=== PATIENT | female | born 1980 | race Caucasian/White ===

== ENCOUNTER 2017-07-02 07:19 | Inpatient (IN) | payer BC, OTHER ==
[~2017-07-02] VITALS: Ht 175.3 cm; Wt 99.3 kg
--- NOTE | 2017-07-02 10:20 | NUR ---
Pre-admission Note: Client was seen in intake at this time. Appears anxious and guarded but cooperative. Alert and oriented x 4. Verbally responsive. Reports allergies to PCN, SULFA and TRAMADOL. Denies any seizure history. Wishes to be FULL CODE. Follows a regular diet at home. She reports past medical hx of insomnia, neck surgery in 2013 and a hysterectomy in 2008. Client states "I am here to get off prescription drugs and alcohol because it is becoming to be a problem." VS: Temp 98.1, Pulse 79, RR 18, BP 127/92, PL 0/10. Educated client on the admission process, reassurance provided. Will continue with the admission when client arrives on the unit.
[2017-07-02 10:30] VITALS: BP 127/92
--- NOTE | 2017-07-02 10:30 | NUR ---
Admission Note: Admitted a 36 year old female under the care of Dr. Ramses Christine for opiate and ETOH withdrawal She is alert and verbally responsive. Oriented x 4. Respirations even and unlabored. No SOB noted. Skin warm and moist to touch. Body search done by female COUNSEL. No contraband was found. Skin check done. No skin breakdown noted. Abdomen soft and non-distended. BS (+) in all 4 quadrants. Denies any complains of N/V/D or constipation noted. Reports LBM was yesterday. Voids independently. Able to provide urine for UDS. Ambulatory ad hollie with steady gait. Denies seizure history. However, reports hx of insomnia, hysterectomy in 2008 and neck surgery in 2013. She reports having a PCP named Dr. Ragsdale from [place] which she has not seen in a year. She is allergic to PCN, SULFA, and TRAMADOL. She follows a regular diet at home and wishes to be FULL CODE. She is currently living with her and due to a traumatic past she started drinking more than usual and has been taking prescription [place] more than prescribed. Patient does not smoke cigarettes. She reports that this is her first time in detox and her usual withdrawal symptoms are anxiety, diarrhea and chills. Substance Use: 1. ETOH - since 14 years old, reports consuming 1 to 2 pints of Vodka 5 days a week x 5 years. Last drink was 2 days ago, 1 pint. 2. Catlett - since 2012, orally takes 60 to 90 mg daily, if available x 3 months. Last use was on 07/01/2017, 30 mg. Orientation to the unit provided. Educated patient on the unit's policy and procedures and current plan of care. Patient verbalized good understanding. On fall and seizure precautions. All needs met and attended. Will continue to monitor closely. Dr. Christine in the unit to see and evaluate the patient and admission orders will be entered.
[2017-07-02 11:05] LABS: *URINE HCG, QUAL NEGATIVE (NEGATIVE)
[2017-07-02 11:15] LABS: *AMPHETAMINE, URINE NEGATIVE (NEGATIVE); *BARBITURATE, URINE NEGATIVE (NEGATIVE); *CANNABINOID, URINE NEGATIVE (NEGATIVE); *COCCAINE, URINE NEGATIVE (NEGATIVE); *OPIATE, URINE POSITIVE (NEGATIVE); *PHENCYCLIDINE SCREEN,URINE NEGATIVE (NEGATIVE)
[2017-07-02] MEDS ORDERED: HYDR-548 PO (11:24)
[2017-07-02] MEDS ORDERED: DIPH25CA83 PO (11:24)
[2017-07-02 12:00] VITALS: BP 138/92
[2017-07-02] MEDS ORDERED: MIRALAX 17 GM POWD.PACK PO PRN (12:00)
[2017-07-02] MEDS ORDERED: DOCUSATE SODIUM 250 MG CAPSULE PO PRN (12:00)
[2017-07-02] MEDS ORDERED: LOPERAMIDE HCL 2 MG CAPSULE PO PRN ×2 (12:00)
[2017-07-02] MEDS ORDERED: MAG HYDROX/AL HYDROX/SIMETH 30 ML LIQUID UDC PO PRN (12:00)
[2017-07-02] MEDS ORDERED: DICYCLOMINE HCL 20 MG TABLET PO PRN (12:00)
[2017-07-02] MEDS ORDERED: ONDANSETRON ODT 4 MG TAB.RAPDIS SL PRN (12:00)
[2017-07-02] MEDS ORDERED: ONDANSETRON 4 MG/2 ML VIAL IM PRN (12:00)
[2017-07-02] MEDS ORDERED: BUPRENORPHINE HCL 2 MG TAB.SUBL SL PRN (12:00)
[2017-07-02] MEDS ORDERED: LORAZEPAM 1 MG TABLET PO PRN ×2 (12:00)
[2017-07-02] MEDS ORDERED: THIAMINE HCL 200 MG/2 ML VIAL IM ONE (12:00)
[2017-07-02] MEDS ORDERED: LORAZEPAM 2 MG/1 ML VIAL IM PRN (12:00)
[2017-07-02] MEDS: LORAZEPAM 1 MG TABLET PO SCH ×3 (12:30→20:36)
[2017-07-02 12:37] LABS: BASOPHILS # (AUTO) 0.1 K/uL (0.0-8.0); BASOPHILS % (AUTO) 0.9 % (0.0-2.0); EOSINOPHILS # (AUTO) 0.1 K/uL (0.0-0.7); EOSINOPHILS % (AUTO) 1.4 % (0.0-7.0); HEMATOCRIT 33.8 % (31.2-41.9); HEMOGLOBIN 10.7 g/dL (10.9-14.3); LYMPHOCYTES % (AUTO) 15.6 % (20.5-51.5); MEAN CORPUSCULAR HEMOGLOBIN 27.9 uug (24.7-32.8); MEAN CORPUSCULAR HGB CONC 32 g/dL (32.3-35.6); MONOCYTES # (AUTO) 0.5 K/uL (2.0-10.0); MONOCYTES % (AUTO) 7.9 % (0.0-11.0); NEUTROPHILS # (AUTO) 4.6 K/uL (1.8-8.9); NEUTROPHILS % (AUTO) 74.2 % (38.5-71.5); PLATELET COUNT (AUTO) 312 K/uL (179-408); RED BLOOD CELL COUNT(AUTO) 3.85 MIL/uL (3.63-4.92); WHITE BLOOD COUNT (AUTO) 6.2 K/uL (3.8-11.8)
[2017-07-02 12:49] LABS: ETHANOL < 3 MG/DL (0-0)
[2017-07-02 12:53] LABS: ALANINE AMINOTRANSFERASE 18 U/L (14-59); ALKALINE PHOSPHATASE 57 U/L (50-136); AMYLASE 64 U/L (25-115); ASPARTATE AMINOTRANSFERASE 24 U/L (15-37); BILIRUBIN,TOTAL 0.6 mg/dL (0.2-1.0); CARBON DIOXIDE 26 mmol/L (21-32); CHLORIDE 105 mmol/L (98-107); CREATININE 0.9 mg/dL (0.6-1.3); GLUCOSE 74 mg/dL (74-106); MAGNESIUM 1.8 mg/dL (1.8-2.4); POTASSIUM 4.4 mmol/L (3.5-5.1); TOTAL PROTEIN, SERUM 7.7 g/dL (6.4-8.2); UREA NITROGEN, BLOOD 12 mg/dL (7-18)
[2017-07-02] MEDS: IBUPROFEN 600 MG TABLET PO PRN (14:26)
--- NOTE | 2017-07-02 14:26 | NUR ---
Motrin 600 mg PO given: Patient noted with complain of 5/10 headache. Non-pharmacological interventions provided but ineffective. Medicated patient with Motrin 600 mg PO as ordered. Will monitor for effectiveness.
[2017-07-02] MEDS: BUPRENORPHINE HCL 2 MG TAB.SUBL SL SCH ×2 (14:27→20:36)
--- NOTE | 2017-07-02 15:26 | NUR ---
Re-assessment: Motrin Patient is observed to be laying in bed with eyes closed. Breathing even and unlabored. Easily arousable. Patient verbalizes that PRN Motrin was effective in relieving her headache.
[2017-07-02 16:00] VITALS: BP 107/83
--- NOTE | 2017-07-02 19:00 | NUR ---
Start of Shift Patient Received. Patient is noted in the activities room participating in a group meeting. Per endorsement, patient received PRN Motrin and Robaxin for muscle aches and pain. Medications noted to be effective. Patient was allowed to make a phone call with administration which resulted in patient becoming very emotional, increased anxiety, and cravings. Patient was then given PRN Ativan 1mg. CIWA noted 12. Patient was noted to be compliant with plan of care, medications, and group therapy. Last noted CIWA 10 and COWS 7. All questions answered. Will continue plan of care as ordered. Addendum: 07/03/17 at 2352 by SHANT NELSON LVN ENTERED IN ERROR
--- NOTE | 2017-07-02 19:00 | NUR ---
Start of Shift Patient Received. Patient is in the activities room participating in a group meeting. Per endorsement, patient was [facility] for ETOH and Opiate withdrawals. Patient was started on a 5 day Ativan and 5 day Subutex taper. Last COWS noted to be 7 and CIWA 8. PRN Motrin administered for pain with medication noted to be effective. Will continue plan of care as ordered.
--- NOTE | 2017-07-02 19:09 | NUR ---
End of Shift Notes: Patient initiated her 5-day Subutex and 5-day Ativan taper as ordered. Patient is tolerating taper well. No adverse reactions noted. VS monitored closely. No significant abnormalities noted. Withdrawal symptoms were closely monitored. Initial COWS 10/CIWA 10, patient presented with sweats, anxiety, tremors, pupil dilation, agitation and nervousness. Last COWS 7/CIWA 8. PRN Motrin was given at 1426 for headache with help after 1 hour. Per patient Ativan/Subutex has been effective in reducing her withdrawal symptoms. Encouraged patient to socialize with her peers and attend group and activities for redirection. All needs met and attended. Will continue to monitor closely.
[2017-07-02 20:25] VITALS: BP 147/108
--- NOTE | 2017-07-02 20:35 | NUR ---
PRN Medication Administration Patient is noted in her room, restless, anxious, verbalizing racing thoughts, and insomnia. Patient is verbalizing pain 5/10 due to neck pain. Patient is noted with elevated blood pressure of 147/108 and pulse of 78. Patient was also able to verbalize Im having a hard time falling asleep because Im anxious and Im here. This its a just really overwhelming. PRN Clonidine, Benadryl, and Tylenol administered with routine medications. Will continue to monitor.
[2017-07-02] MEDS: diphenhydrAMINE 50 MG CAPSULE PO PRN (20:38)
[2017-07-02] MEDS: ACETAMINOPHEN 325 MG TABLET PO PRN (20:38)
[2017-07-02] MEDS: CLONIDINE HCL 0.1 MG TABLET PO PRN (20:38)
[2017-07-02 21:30] VITALS: BP 111/62
--- NOTE | 2017-07-02 21:35 | NUR ---
PRN Medication Reassessment 2134 Patient is noted in bed sleeping but easily aroused to verbal stimuli. Breathing even and non labored. No signs of restless or pain. Vitals rendered and blood pressure noted to be 111/62 and pulse of 72. PRN Clonidine and Tylenol noted to be effective. Patient was noted to fall back asleep with no complications noted. PRN Benadryl noted to be effective. Will continue to monitor.
[2017-07-03 00:47] VITALS: BP 119/67
[2017-07-03 04:00] VITALS: BP 118/70
--- NOTE | 2017-07-03 07:20 | NUR ---
End of Shift Patient is in bed sleeping. Breathing even and non labored. No signs of pain or discomfort noted. Patient continues on a modified 5 day Ativan taper. Patient was noted to participate in group meeting upon arrival of shift. Patient also received PRN Clonidine for elevated blood pressure, PRN Tylenol for increased next pain, and PRN Benadryl for inability of falling asleep and staying asleep. PRN medications noted to be effective. Patient slept a total of 9 hours with last noted COWS 9 and CIWA 10. Will endorse to continue plan of care as ordered.
--- NOTE | 2017-07-03 07:34 | NUR ---
Start of Shift Notes: Received endorsement from night nurse. Patient is a 36 year old female admitted for opiate and ETOH dependence who was placed on a 5-day Ativan and 5-day Subutex taper as ordered. No adverse reactions noted. Has past medical hx of insomnia, hysterectomy, and neck surgery. Patient was able to sleep during the night obtaining 9 hours of sleep. Last . PRN Benadryl, Tylenol, Clonidine were given during the night. Patient appears anxious upon waking, appears flushed. Verbalizes that she feels anxious about sobriety. Redirection provided. Educated patient on her current plan of care and encouraged oral fluid intake and group participation to learn new skills to prevent relapse. Addendum: 07/03/17 at 1023 by SEHRIN LANGE LVN Patient is admitted for medically supervised withdrawal from ETOh and opiate. Not dependence.
[2017-07-03 08:00] VITALS: BP 109/74
[2017-07-03] MEDS ORDERED: TUBERCULIN,PURIF.PROT.DERIV. 5 TU/0.1 ML TEST ID ONE (09:00)
[2017-07-03] MEDS ORDERED: BUPRENORPHINE HCL 2 MG TAB.SUBL SL SCH (09:00)
[2017-07-03] MEDS: IBUPROFEN 600 MG TABLET PO PRN ×2 (09:13→21:36)
--- NOTE | 2017-07-03 09:13 | NUR ---
Motrin 400 mg PO given: Patient noted with complain of 5/10 headache. Non-pharmacological interventions provided but ineffective. Medicated patient with Motrin 400 mg PO as ordered. Will monitor for effectiveness.
[2017-07-03] MEDS: FOLIC ACID 1 MG TABLET PO SCH (09:14)
[2017-07-03] MEDS: LORAZEPAM 1 MG TABLET PO SCH ×3 (09:14→21:36)
[2017-07-03] MEDS: THIAMINE HCL 100 MG TABLET PO SCH (09:14)
[2017-07-03] MEDS: MULTIVITAMINS,THERAPEUTIC TABLET PO SCH (09:14)
--- NOTE | 2017-07-03 10:13 | NUR ---
Re-assessment: Motrin Per patient, PRN Motrin was effective in reducing her headache. PL 06/03.
[2017-07-03 12:00] VITALS: BP_SYST 109; BP_SYST 116; BP_SYST 126; BP_DIAS 74; BP_DIAS 87
[2017-07-03 13:08] LABS: HEPATITIS B SURFACE AG Negative (Negative)
[2017-07-03] MEDS: BUPRENORPHINE HCL 2 MG TAB.SUBL SL SCH ×2 (14:14→21:36)
[2017-07-03] MEDS: METHOCARBAMOL 750 MG TABLET PO PRN (14:20)
--- NOTE | 2017-07-03 14:20 | NUR ---
Robaxin 750mg PO given: Patient was noted with complain of myalgia of 7/10 related to opiate withdrawals. Non-pharmacological interventions were provided but ineffective. Medicated patient with Robaxin 750 mg PO as ordered. Will monitor for effectiveness.
--- NOTE | 2017-07-03 15:20 | NUR ---
Re-assessment: Robaxin Per patient, PRN Robaxin was effective in reducing patient' pain. Verbalizes pain level is 3/10.
[2017-07-03 16:00] VITALS: BP 125/68
--- NOTE | 2017-07-03 18:07 | NUR ---
Ativan 1 mg PO given: Patient came up to the station, appeared tearful and flushed. Patient was accompanied back to her room and asked what was bothering her. Patient stated that she felt anxious and agitated due to a phone call she made with her . Patient was encouraged to verbalize her feelings and concerns but patient continues to be anxious, agitated and tearful. States "I'm so anxious that I am craving." CIWA 12, medicated patient with Ativan 1 mg PO per CIWA score. Will monitor for effectiveness.
--- NOTE | 2017-07-03 19:00 | NUR ---
Start of Shift Patient Received. Patient is noted in the activities room participating in a group meeting. Per endorsement, patient received PRN Motrin and Robaxin for muscle aches and pain. Medications noted to be effective. Patient was allowed to make a phone call with administration which resulted in patient becoming very emotional, increased anxiety, and cravings. Patient was then given PRN Ativan 1mg. CIWA noted 12. Patient was noted to be compliant with plan of care, medications, and group therapy. Last noted CIWA 10 and COWS 7. All questions answered. Will continue plan of care as ordered.
--- NOTE | 2017-07-03 19:07 | NUR ---
Re-assessment: Ativan CIWA 10, patient is not longer tearful. Verbalized "I feel less anxious and less irritable. Cravings are gone." However patient still appears to be labile. PRN Ativan was effective in reducing patient's withdrawal symptoms.
--- NOTE | 2017-07-03 19:13 | NUR ---
End of Shift Notes: Patient is tolerating the 2nd day of her Ativan and Subutex taper well. VS monitored closely. No significant abnormalities noted. Withdrawal symptoms were closely monitored. Initial COWS 12/CIWA 10, patient presented with with facial flushing, sweating, restlessness, pupil dilation, fine tremors, anxiety, agitation, fatigue and headache. Medicated patient with Motrin 400 mg Po at 0913 for headache with help after 1 hour and Robaxin at 1420 for myalgia with help. At 1807, patient appeared to have an anxiety attack. Medicated patient with Ativan 1 mg PO for CIWA 12. Last COWS 7/CIWA 8. Denies S/, H/I or AV hallucinations. Consuming 100% of meals. Compliant with care and treatment. Requires encouraged to attend group and to socialize with her peers due to episodes of self isolation. Oral fluids encouraged. Support provided. All needs met and attended. Will continue to monitor closely.
[2017-07-03 20:35] VITALS: BP 147/83
[2017-07-03] MEDS ORDERED: TRAZODONE 50 MG TABLET PO PRN (21:30)
[2017-07-03] MEDS: GABAPENTIN 300 MG CAPSULE PO SCH (21:35)
--- NOTE | 2017-07-03 21:35 | NUR ---
PRN Medication Administration Patient returned from the group meeting and was noted verbalizing "its been really tough day. So many emotions and anxiety. Im trying to collect my thoughts. There is just so much going on." Encourage patient to stay focused and on the important of being present. Patient also noted verbalizing of neck pain 5/10. Patient also verbalized of inability of falling asleep but Benadryl did not work for her the previous night. Patient states "It felt like I was still awake but sleeping. "I didn't feel rested." Relayed to Psychiatrist with new order obtained for Trazodone 50mg. Patient verbalized of wanting to take a shower prior to taking medications in hopes to calm her down. PRN Trazodone and Motrin administered with routine medications. Will continue to monitor for effectiveness of medications.
--- NOTE | 2017-07-03 22:30 | NUR ---
PRN Medication Administration Patient is noted in bed, awake and verbally responsive. Patient is noted watching TV. She verbalizes "Im still trying to fall asleep. Im going just try and lay here in bed and see if I do." PRN Trazodone not effective offered PRN Benadryl but patient refused. Encouraged patient to turn off TV. No pain verbalized. PRN Motrin noted to be effective. Will continue to monitor. Addendum: 07/04/17 at 0032 by SAHNT NELSON LVN PRN Medication Reassessment
[2017-07-04 00:48] VITALS: BP 117/82
[2017-07-04] MEDS: diphenhydrAMINE 50 MG CAPSULE PO PRN (00:55)
--- NOTE | 2017-07-04 00:55 | NUR ---
PRN Medication Administration Patient is noted awake in bed, restless, tremulous, increased sweats, anxiety, and insomnia. Patient verbalized "Im just worried and anxious about what is going on at home." Allowed patient to verbalize feelings and offered support. Patient agreed to take PRN Benadryl. CIWA noted to be 13. PRN Ativan 2mg and PRN Benadryl administered. Will continue to monitor.
--- NOTE | 2017-07-04 02:00 | NUR ---
PRN Medication Reassessment Patient is noted in bed sleeping. Breathing even and non labored. No signs of restlessness or discomfort noted. PRN Benadryl and Ativan 2mg noted to be effective. Will continue to monitor.
[2017-07-04 04:26] VITALS: BP 99/58
--- NOTE | 2017-07-04 07:18 | NUR ---
End of Shift Patient is in bed sleeping but easily aroused to verbal stimuli. Breathing even and non labored. Patient continues on modified Subutex and Ativan tapers. Patient was given PRN Motrin for pain with medication noted to be effective. Patient also verbalized inability of falling asleep and MD made aware with new order obtained for PRN Trazodone with medication noted to be not effective. Patient noted with increased CIWA of 13 with increased anxiety, restlessness, and complaints of insomnia with PRN Ativan 2mg and PRN Benadryl administered. PRN Medications noted to be effective. Patient slept a total of 4 hours with sleep noted to be broken. Last noted COWS 11 and CIWA 13. All needs attended to promptly. Will endorse to continue plan of care as ordered.
--- NOTE | 2017-07-04 07:30 | NUR ---
START OF SHIFT Pt 36 y/o female admitted for medically supervised withdrawal. Pt received in room on bed with eyes closed resting, but easily arousable to name. Pt alert and oriented to name, place, and time. [place]. Skin warm and moist to touch. Respirations even and unlabored. Bilateral hand tremors noted. Pt appears disheveled. Pt also anxious this morning, appears worried. Open empty bottles throughout the bed side. Pt is on a 5 day ativan taper and is on day 3. Pt is also on a 5 day subutex taper and is on day 3. Last cows=11 ciwa=13 reported at 0400. It was reported that pt slept for 3 hours last night. It was reported that pt did not sleep well and had intermittent sleep. Bed on lowest position with side rails x2 up for safety. Call light within reach.
[2017-07-04] MEDS: MULTIVITAMINS,THERAPEUTIC TABLET PO SCH (08:42)
[2017-07-04] MEDS: GABAPENTIN 300 MG CAPSULE PO SCH ×3 (08:42→21:21)
[2017-07-04] MEDS: THIAMINE HCL 100 MG TABLET PO SCH (08:42)
[2017-07-04] MEDS: LORAZEPAM 1 MG TABLET PO SCH ×2 (08:42→14:18)
[2017-07-04] MEDS: BUPRENORPHINE HCL 2 MG TAB.SUBL SL SCH ×3 (08:42→21:21)
[2017-07-04] MEDS: FOLIC ACID 1 MG TABLET PO SCH (08:42)
[2017-07-04 08:49] VITALS: BP 118/77
[2017-07-04] MEDS ORDERED: METHYL SALICYLATE/MENTHOL CREAM 28 GM TUBE TOP PRN (11:30)
[2017-07-04] MEDS: CLONIDINE HCL 0.1 MG TABLET PO PRN (12:18)
--- NOTE | 2017-07-04 12:24 | NUR ---
PRN pt with pb=250/92. Catapres po prn per MD order given and tolerated well.
[2017-07-04 12:33] VITALS: BP 155/92
--- NOTE | 2017-07-04 13:24 | NUR ---
PRN EVAL Pt zw=228/88
[2017-07-04] MEDS: BACLOFEN 10 MG TABLET PO SCH ×2 (14:18→21:20)
[2017-07-04] MEDS: KETOROLAC TROMETHAMINE 30 MG INJ IM PRN ×2 (14:28→21:22)
--- NOTE | 2017-07-04 14:38 | NUR ---
PRN Pt states has lower back pain /. Toradol IM prn per MD order given and tolerated well.
[2017-07-04] MEDS ORDERED: TRAZODONE 50 MG TABLET PO PRN (15:00)
--- NOTE | 2017-07-04 15:38 | NUR ---
PRN VAMSI Pt states pain 09/01.
[2017-07-04 16:00] VITALS: BP 140/88
--- NOTE | 2017-07-04 18:33 | NUR ---
END OF SHIFT Pt 36 y/o female admitted for medically supervised withdrawal. Pt alert and oriented to name, place, and time. Perrla. Skin warm and moist to touch. Respirations even and unlabored. Bilateral hand tremors noted. Pt with periods of anxiety this morning. Pt fidgety, appears worried, and restless. Pt appears disheveled with hair uncombed. Pt mostly isolative with minimal peer interaction. Pt with low motivation for self care. Pt attended group activity. Pt is on a 5 day ativan taper and is on day 3. Pt is on a 5 day subutex taper and is on day 3. COWS= 9@ 0800, 9 @1200, and 9@1600. CIWA= 9@ 0800, 9@1200, and @1600. Pt was seen by MD today. Pt medication compliant and tolerated well. No ASE noted. Pt was given catapres po prn per MD order this morning for wb=011/92. Pt was given toradol IM prn per MD order given and tolerated well this afternoon for lower back pain 01/01. Bed on lowest position with side rails x2 up for safety. Call light within reach.
--- NOTE | 2017-07-04 19:10 | NUR ---
START OF SHIFT Patient is a 36-year-old female admitted on 07/02/27 for ETOH (vodka) and [place] withdrawal. Patient is on day 3 of a 5-day Ativan and 5-day Subutex taper, tolerating. Last COWS was 9, last CIWA was 9. Patient received PRN Clonidine and PRN Toradol IM during the day for elevated BP and lower back pain. Patient reports that she has not been sleeping well the last two nights and she reports neck and back pain aching and throbbing of 8/10 on pain scale. Patient appears worried and is anxious to get some sleep tonight. Safety measures in place, bed locked in low position, side rails up x2, call light within reach. Will continue to monitor.
[2017-07-04 20:00] VITALS: BP 122/83
[2017-07-04] MEDS ORDERED: LORAZEPAM 1 MG TABLET PO SCH (21:00)
[2017-07-04] MEDS: CLONIDINE HCL 0.1 MG TABLET PO SCH (21:20)
--- NOTE | 2017-07-04 21:22 | NUR ---
PRN TORADOL IM Patient reports pain 8/10 for her neck and back, "aching and throbbing." PRN Toradol IM administered at patient's right deltoid. Will reassess for effectiveness.
--- NOTE | 2017-07-04 21:52 | NUR ---
PRN TORADOL REASSESSMENT Patient reports pain at 4/10 on pain scale. PRN Toradol effective. Safety measures in place, call light within reach. Will continue to monitor.
--- NOTE | 2017-07-05 | NUR ---
VITALS REFUSED, COWS & CIWA DEFERRED Patient refused midnight vital signs, COWS and CIWA deferred due to patient asleep. Respirations are 16/min. Safety measures in place, call light within reach. Will continue to monitor.
[2017-07-05] MEDS: TRAZODONE 100 MG TABLET PO PRN ×2 (00:52→21:01)
[2017-07-05] MEDS: METHOCARBAMOL 750 MG TABLET PO PRN (00:52)
[2017-07-05] MEDS: ACETAMINOPHEN 325 MG TABLET PO PRN (00:52)
--- NOTE | 2017-07-05 00:52 | NUR ---
Trazodone, Robaxin, and Tylenol PRN: Pt c/o aching pain on the lower back. Pt reported 8/10 pain. Robaxin and Tylenol PRN given as ordered. Pt also reported difficulty falling asleep. Trazodone PRN given as ordered. Will continue to monitor.
--- NOTE | 2017-07-05 01:52 | NUR ---
PRN REASSESSMENT Patient is resting in bed with eyes closed, respirations even and unlabored. Safety measures in place, call light within reach. Will continue to monitor.
--- NOTE | 2017-07-05 04:00 | NUR ---
VITALS REFUSED, COWS & CIWA DEFERRED Patient refused 4AM vital signs, COWS and CIWA deferred due to patient sleeping. Respirations are 18/min, safety measures in place, call light within reach. Will continue to monitor.
[2017-07-05] MEDS: KETOROLAC TROMETHAMINE 30 MG INJ IM PRN ×3 (05:10→21:01)
--- NOTE | 2017-07-05 05:10 | NUR ---
PRN TORADOL IM Patient reports pain of 8/10 on pain scale, lower and upper back, "aching and throbbing." PRN Toradol given IM to patient's left deltoid. Patient tolerated well. Safety measures in place, call light within reach. Will reassess for effectiveness.
--- NOTE | 2017-07-05 05:40 | NUR ---
KENN TORADOL REASSESSMENT Patient is sleepi Addendum: 07/05/17 at 0620 by OBDULIA SMALLS LVN Patient is asleep, unable to reassess. No facial grimace noted at this time. Respirations even and unlabored, 16/min. Safety measures in place, call light within reach. Will continue to monitor.
--- NOTE | 2017-07-05 07:20 | NUR ---
END OF SHIFT Patient is a 36-year-old female admitted on 07/02/27 for ETOH (vodka) and [place] withdrawal. Patient is on day 4 of a 5-day Ativan and 5-day Subutex taper. Last COWS was 8, last CIWA was 11. Patient received PRN Toradol IM x2, PRN Robaxin, PRN Tylenol, and PRN Trazodone. Patient slept for 6 hours, total intake 796 mL, void x2, stool x0.Safety measures in place, bed locked in low position, side rails up x2, call light within reach. Will endorse to day shift.
--- NOTE | 2017-07-05 07:30 | NUR ---
START OF SHIFT NOTE Received report from night nurse, 36 year old female admitted for ETOH/Opioid withdrawal. Patient cont on 5 days Subutex and 5 days Ativan taper tolerating well. Per endorsement pt was given PRN x2 Toradol and Robaxin,Tylenol, Trazodone effective per night nurse, last CIWA score was 11, CIWA was 8, slept for 6 hours. Patient received awake, alert and oriented x4, educated regarding plan of care for the day, All safety measures in place. Will cont to monitor.
[2017-07-05 08:00] VITALS: BP 118/75
[2017-07-05] MEDS: BUPRENORPHINE HCL 2 MG TAB.SUBL SL SCH ×2 (08:56→20:50)
[2017-07-05] MEDS: MULTIVITAMINS,THERAPEUTIC TABLET PO SCH (08:57)
[2017-07-05] MEDS: LORAZEPAM 1 MG TABLET PO SCH ×2 (08:57→20:49)
[2017-07-05] MEDS: GABAPENTIN 300 MG CAPSULE PO SCH ×3 (08:57→20:49)
[2017-07-05] MEDS: CLONIDINE HCL 0.1 MG TABLET PO SCH ×2 (08:57→20:50)
[2017-07-05] MEDS: THIAMINE HCL 100 MG TABLET PO SCH (08:57)
[2017-07-05] MEDS: FOLIC ACID 1 MG TABLET PO SCH (08:57)
[2017-07-05] MEDS: BACLOFEN 10 MG TABLET PO SCH ×3 (08:57→20:50)
[2017-07-05] MEDS ORDERED: HYDROXYZINE PAMOATE 25 MG CAPSULE PO PRN (11:45)
[2017-07-05 12:00] VITALS: BP 139/81
--- NOTE | 2017-07-05 14:32 | NUR ---
PRN TORADOL Patient c/o of lower back pain 01/01, PRN Toradol 30ml IM administered as ordered. Will cont to monitor and reassess.
--- NOTE | 2017-07-05 15:02 | NUR ---
TORADOL REASSESSMENT Per patient reported Toradol was effective pain lower to 2/10.
[2017-07-05 16:00] VITALS: BP 130/84
--- NOTE | 2017-07-05 19:01 | NUR ---
END OF SHIFT NOTE Patient cont with Subutex and Ativan taper tolerating well. During shift patient was given PRN Toradol for lower back pain noted to be effective. Vital signs remained WNL. Encourage Po fluids as tolerated. Last CIWA score was 4/COWS-4@1600. Patient was seen by psychiatrist with no new order at this time. Skin intact warm and dry to touch. Patient attended groups and activities. All needs attended, Safety measures in place. Patient endorsed to night nurse in stable condition.
--- NOTE | 2017-07-05 19:01 | NUR ---
START OF SHIFT NOTE Patient is a 36 old female admitted to [facility] 07/02/17 for ETOH(Vodka) and [place] dependence, continue 5 Day Ativan and 5 Day Subutex Taper with tolerated well without ASE. Patient reported Allergy to PCN and Sulfa (Sulfonamide Antibiotics), and Tramadol. Patient is on Full Code, Regular Diet, Fall and Seizures Precautions. Patient denies seizures history. PMH: Anxiety, Depression, Insomnia, and Neck Surgery in 2013. Patient is alert and oriented x4. Patient denies SI/HI. COWS 7,CIWA 8. Patient presented with anxiety, agitation, nervousness, tremors, stomach pain, sweating, body and muscle aches, fatigue, and restlessness. Patient denies nausea, vomiting, and diarrhea. VSWNL. Respirations is unlabored and even. Abdomen is soft, non-tender. Bowel Sounds active in all four quadrants. Skin is warm, and moist to touch. Patient encouraged to attend activities, and to increasing oral fluids. All safety measures in the place: Call light within reach; bed locked and in the lowest position; padded rails up x 2. Patient endorsed by day shift nurse, report received. Will continue to monitor closely. Addendum: 07/06/17 at 0522 by MAGDA BOONE RN Skin is intact warm,and moist to touch.
[2017-07-05 20:00] VITALS: BP 150/96
--- NOTE | 2017-07-05 21:01 | NUR ---
PRN TORADOL 30 MG/1 ML IM ADMINISTRATION Patient c/o "low back pain "01/01"and asked aid. PRN Toradol Inj 30 mg/1 ml IM on CAR[place]OT[place] - Deltoid Muscle administrated as ordered. Patient tolerated well. All needs met. Safety measures on place. Call light within reach, bed in lowest position, locked, padded rails up bilaterally. Will continue to monitor closely.
--- NOTE | 2017-07-05 21:01 | NUR ---
PRN TRAZODONE 300 MG 3 TAB PO ADMINISTRATION Patient c/o insomnia. PRN Trazodone 100 mg 1 tab. PO administrated with full glass of water as ordered. Patient tolerated well. All needs met. Safety measures on place. Call light within reach, bed in lowest position and locked, padded rails up bilaterally rails up bilaterally. Will continue to monitor closely. Addendum: 07/05/17 at 2135 by MAGDA BOONE RN PRN TRAZODONE 100 MG 1 TAB PO ADMINISTRATION
--- NOTE | 2017-07-05 21:31 | NUR ---
RE-ASSESSMENT Patient is sleeping. Respirations even and unlabored. RR 16. PRN Toradol Inj 30 mg/1 ml IM on CARL[place] - Deltoid Muscle administrated for upper back pain"01/01" @210was effective. All needs met. Safety measures on place. Call light within reach, bed in lowest position and locked, padded rails up bilaterally. Will continue to monitor closely.
--- NOTE | 2017-07-05 22:01 | NUR ---
RE-ASSESSMENT Patient is sleeping. Respirations even and unlabored. RR 16. PRN Trazodone 100 mg 1 tab PO administrated for insomnia @2100 was effective. All needs met. Safety measures on place. Call light within reach, bed in lowest position and locked, padded rails up bilaterally rails up bilaterally. Will continue to monitor closely.
[2017-07-06] VITALS: BP 102/53
[2017-07-06 04:00] VITALS: BP 101/57
--- NOTE | 2017-07-06 07:25 | NUR ---
END OF SHIFT NOTE 36 old female admitted to [facility] 07/02/17 for ETOH(Vodka) and [place] dependence, continue 5 Day Ativan and 5 Day Subutex Taper with tolerated well without ASE. Patient remains compliant with therapeutic plan, medications, and diet regime. Patient reported Allergy to PCN and Sulfa (Sulfonamide Antibiotics), and Tramadol. Patient is on Full Code, Regular Diet, Fall and Seizures Precautions. Patient denies seizures history. PMH: Anxiety, Depression, Insomnia, and Neck Surgery in 2013. Patient is alert and oriented x4. Last COWS 9, CIWA 9 @0400. Patient presented with anxiety; agitation, nervousness, body aches, stomach cramps, sweating, and headache. VS at 04:00:T: 98.3; BP:101/57; HR:70; O2Sat: 100%; RR: 18. Pain Level :"4/10". Skin is intact warm, and dry to touch. Patient denies SI/HI. Patient encouraged to increase oral fluid intake as tolerated. Patient encouraged to attend activities PRN Toradol Inj 30 mg/1 ml IM on [place] - Deltoid Muscle administrated for upper back pain"8/10" @210, and PRN Trazodone 100 mg 1 tab PO administrated for insomnia @210 were effective. Patient slept 8 hours, intake 2,000 ml, voided x3. Patient denies SI/HI at this time. All needs met. Safety measures in the place by hospital policy: Call light within reach, bed in the lowest position and locked, padded rails up x2. Patient endorsed to day shift nurse, report given.
--- NOTE | 2017-07-06 07:48 | NUR ---
START OF SHIFT NOTE Received report from night nurse, 36 year old female admitted for ETOH/Opioid withdrawal. Patient cont on 5 days Subutex and 5 days Ativan taper tolerating well. Per endorsement pt was given PRN Toradol and Trazodone effective per night nurse, last CIWA score was 9, CIWA was 9, slept for 8 hours. Patient received asleep responsive to verbal and tactile stimuli, Breathing normal no SOB noted. Skin intact warm and dry to touch. All safety measures in place. Will cont to monitor.
[2017-07-06 08:00] VITALS: BP_SYST 107; BP_DIAS 67; BP_DIAS 72
[2017-07-06] MEDS: THIAMINE HCL 100 MG TABLET PO SCH (08:27)
[2017-07-06] MEDS: MULTIVITAMINS,THERAPEUTIC TABLET PO SCH (08:27)
[2017-07-06] MEDS: FOLIC ACID 1 MG TABLET PO SCH (08:27)
[2017-07-06] MEDS: GABAPENTIN 300 MG CAPSULE PO SCH ×3 (08:27→20:59)
[2017-07-06] MEDS: BACLOFEN 10 MG TABLET PO SCH ×3 (08:27→20:58)
[2017-07-06] MEDS: CLONIDINE HCL 0.1 MG TABLET PO SCH ×2 (08:29→20:57)
[2017-07-06] MEDS ORDERED: BUPRENORPHINE HCL 2 MG TAB.SUBL SL SCH (09:00)
[2017-07-06] MEDS ORDERED: LORAZEPAM 1 MG TABLET PO SCH (09:00)
[2017-07-06] MEDS ORDERED: TRAZODONE 100 MG TABLET PO PRN (09:15)
[2017-07-06 12:00] VITALS: BP 117/74
[2017-07-06] MEDS ORDERED: IBUPROFEN 800 MG TABLET PO PRN (12:15)
[2017-07-06] MEDS: KETOROLAC TROMETHAMINE 30 MG INJ IM PRN ×2 (15:28→21:47)
--- NOTE | 2017-07-06 15:28 | NUR ---
PRN TORADOL Patient c/o of lower back pain 02/01, PRN Toradol 30ml IM administered as ordered. Will cont to monitor and reassess.
[2017-07-06 16:00] VITALS: BP 123/84
--- NOTE | 2017-07-06 16:28 | NUR ---
TORADOL REASSESSMENT Per patient reported Toradol was effective pain lower to 2/10.
--- NOTE | 2017-07-06 19:16 | NUR ---
END OF SHIFT NOTE Patient admitted for ETOH and Opioid withdrawal and cont with 5 days Ativan and 5 days Subutex taper tolerating well. presented with anxiety, agitation, body aches, sad. Patient was given scheduled medications and PRN Toradol IM. Patient reported medications were effective in controlling her withdrawal symptoms. Patient attended groups and activities. Patient able to consumed all her meals 100%. Encouraged PO fluids as tolerated. Patient voided well and had x1 BM. Patient remained complaint with plan of care and medications. Vital signs remained WNL. Last CIWA-3, COWS was-3 at 1600. Skin intact warm and dry to touch. Safety measures in place. Patient endorsed to night nurse in stable condition. Addendum: 07/06/17 at 1919 by GRETCHEN ROD LVN Patient admitted for ETOH and Opioid withdrawal and completed her 5 days Ativan and 5 days Subutex taper tolerated well and scheduled for discharge in AM.
--- NOTE | 2017-07-06 19:16 | NUR ---
START OF SHIFT NOTE Endorsed 36 old female. Patient reported Allergy to PCN, Sulfa (Sulfonamide Antibiotics),and Tramadol. She is presented for Alcohol and Opioid dependence, completed 5 Day Ativan and 5 Day Subutex Taper with tolerated well without ASE. Upon endorsement, patient assessed in her room. Patient is alert and oriented x4. Patient is anxious, agitated, c/o ""worry about her future, and family". Patient encouraged expresses her feelings. COWS 9,CIWA 8. Patient presented with anxiety, agitation, nervousness, tremors, stomach pain, sweating, low back pain "6/10", generalized body aches, and restlessness. Respirations is unlabored and even. Abdomen is soft, non-tender. Bowel Sounds active in all four quadrants. Skin is warm, and moist to touch. Patient attended activities, and increasing oral fluids per day shift nurse report. Patient scheduled for discharging tomorrow, 07/07/2017 @0930. All safety measures in the place: Call light within reach; bed locked and in the lowest position; padded rails up x 2. Patient endorsed by day shift nurse, report received. Will continue to monitor closely.
[2017-07-06 20:00] VITALS: BP 143/90
[2017-07-06] MEDS ORDERED: TRAZ-147 PO (20:10)
[2017-07-06] MEDS ORDERED: IBUP-1957 PO (20:10)
[2017-07-06] MEDS ORDERED: HYDR-3895 PO (20:10)
[2017-07-06] MEDS ORDERED: DICY20TA28 PO (20:10)
[2017-07-06] MEDS ORDERED: CLON0.1T14 PO (20:10)
[2017-07-06] MEDS ORDERED: METH-406 PO (20:10)
[2017-07-06] MEDS ORDERED: GABA-534 PO ×2 (20:10)
--- NOTE | 2017-07-06 20:58 | NUR ---
2100 PRN TRAZODONE 150 MG PO ADMINISTRATION Patient c/o insomnia. PRN Trazodone 150 mg. PO administrated with full glass of water as ordered. Patient tolerated well. All needs met. Safety measures on place. Call light within reach, bed in lowest position and locked, padded rails up bilaterally rails up bilaterally. Will continue to monitor closely.
--- NOTE | 2017-07-06 21:47 | NUR ---
PRN TORADOL 30 MG/1 ML IM ADMINISTRATION Patient c/o "low back pain "01/01"and asked aid. PRN Toradol Inj 30 mg/1 ml IM on Left Deltoid Muscle administrated as ordered. Patient tolerated well. All needs met. Safety measures on place. Call light within reach, bed in lowest position, locked, padded rails up bilaterally. Will continue to monitor closely.
--- NOTE | 2017-07-06 21:58 | NUR ---
RE-ASSESSMENT Patient is sleeping. RR 15. Respirations even and unlabored. PRN Trazodone 150 mg PO administrated for insomnia @2057 was effective. All needs met. Safety measures on place. Call light within reach, bed in lowest position and locked, padded rails up bilaterally rails up bilaterally. Will continue to monitor closely.
--- NOTE | 2017-07-06 22:17 | NUR ---
RE-ASSESSMENT Patient is sleeping. Respirations even and unlabored. RR 16. PRN Toradol Inj 30 mg/1 ml IM on Left Deltoid Muscle administrated for upper back pain"01/01" @2147 was effective. All needs met. Safety measures on place. Call light within reach, bed in lowest position and locked, padded rails up bilaterally. Will continue to monitor closely.
[2017-07-07] VITALS: BP 105/63
[2017-07-07 04:00] VITALS: BP 100/61
--- NOTE | 2017-07-07 06:24 | NUR ---
END OF SHIFT NOTE Patient presented for Alcohol/Vodka and Opioid/[place] withdrawal, completed 5 Day Ativan and 5 Day Subutex Taper. COWS=9, CIWA=8 @2000, COWS=5,CIWA=5 @0000, and last CIWA=6 @0400. Patient presented anxious and agitated, c/o nervousness, tremors, stomach pain, sweating, low back pain, restlessness, and insomnia. PRN Toradol Inj 30 mg/1 ml IM administrated for low back pain"8/10" @2100, and PRN Trazodone 100 mg 1 tab PO administrated for insomnia @2100 were effective. Patient slept 6 hours, intake 1,000 ml, voided x3. Patient scheduled for discharging today, 07/07/2017 @0930. All needs met. Safety measures in the place by hospital policy: Call light within reach, bed in the lowest position and locked, padded rails up x2. Patient endorsed to day shift nurse, report given. Addendum: 07/07/17 at 0659 by MAGDA BOONE RN Latest COWS =6, CIWA=6 @0400.
--- NOTE | 2017-07-07 07:30 | NUR ---
START OF SHIFT NOTE Received report from night nurse, 36 year old female admitted for ETOH/Opioid withdrawal. Patient completed her 5 days Subutex and 5 days Ativan taper tolerated well. Per endorsement pt was given PRN Toradol and Trazodone effective per night nurse, last CIWA score was 6, CIWA was 6, slept for 6 hours. Patient presented with anxiety, and lower back pain.[facility] is motivated being discharge. Breathing normal no SOB noted. Skin intact warm and dry to touch. All safety measures in place. Will cont to monitor.
[2017-07-07 08:00] VITALS: BP 107/72
[2017-07-07] MEDS: MULTIVITAMINS,THERAPEUTIC TABLET PO SCH (08:10)
[2017-07-07] MEDS: THIAMINE HCL 100 MG TABLET PO SCH (08:10)
[2017-07-07] MEDS: GABAPENTIN 300 MG CAPSULE PO SCH (08:10)
[2017-07-07] MEDS: FOLIC ACID 1 MG TABLET PO SCH (08:10)
[2017-07-07] MEDS: BACLOFEN 10 MG TABLET PO SCH (08:10)
[2017-07-07 08:11] VITALS: BP 107/72
[2017-07-07] MEDS: CLONIDINE HCL 0.1 MG TABLET PO SCH (08:11)
[2017-07-07] MEDS: KETOROLAC TROMETHAMINE 30 MG INJ IM PRN (08:19)
--- NOTE | 2017-07-07 08:19 | NUR ---
PRN TORADOL Patient c/o of lower back pain 01/01. PRN Toradol IM administered as ordered. Will cont to monitor and reassess.
--- NOTE | 2017-07-07 09:30 | NUR ---
DISCHARGE NOTE Patient has been discharged from [facility] Patient is in Stable condition, VS WNL. Denies suicidal and homicidal ideations at this time. Patient reported Toradol was effective and pain lower to 2/10. Last CIWA/COWS was 2/2. All documentation has been completed, paperwork signed and dated. Pt left with all of her belongings, medications and prescriptions. Pt has been discharged from [facility] on 07/07/17 at 0930. has been Notified.
== END 2017-07-07 09:30 | disposition other institution (70) | DRG 895 ==
LOC: SRC 09:49
PROVIDERS: ADMIT Internal Medicine; ATTEND Internal Medicine
DX: F10.232 Alcohol dependence with withdrawal with perceptual disturbance (principal); I15.9 Secondary hypertension, unspecified; D64.9 Anemia, unspecified; E66.9 Obesity, unspecified; F11.23 Opioid dependence with withdrawal; Y90.0 Blood alcohol level of less than 20 mg/100 ml; Z68.32 Body mass index [BMI] 32.0-32.9, adult; Z98.84 Bariatric surgery status; Z91.89 Other specified personal risk factors, not elsewhere classified; Z80.42 Family history of malignant neoplasm of prostate; Z80.6 Family history of leukemia; Z90.710 Acquired absence of both cervix and uterus; G89.29 Other chronic pain; F32.9 Major depressive disorder, single episode, unspecified; M54.2 Cervicalgia
CPT/HCPCS: 36415; 70030-TC; 80307; 80361; 83735; 84703; 85025; 86580; 86592; 86705; 86803; 87340; 87806; G0480; J1885; J3411; Q0163